=== PATIENT | female | born 2000 | race Caucasian/White ===

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

== ENCOUNTER → 2022-06-16 | Outpatient (REF) | payer OTHER, MEDICAID ==
[~2022-06-16] MED LIST changes: +BUPR150T12 PO
[2022-06-16 19:17] LABS: GC DNA AMPLIFICATION NEGATIVE (NEGATIVE)
== END ==
LOC: M LAB REF 16:33
PROVIDERS: ATTEND Physician Assistant
DX: Z11.3 Encounter for screening for infections with a predominantly sexual mode of transmission (principal)

== ENCOUNTER → 2022-07-23 | Outpatient (REF) | payer OTHER, MEDICAID | LOC: M LAB REF 12:27 | PROVIDERS: ATTEND Nurse Practitioner Family | DX: J02.9 Acute pharyngitis, unspecified (principal) ==

== ENCOUNTER → 2022-12-01 | Outpatient (REF) | payer OTHER ==
[2022-12-01 17:10] LABS: APPEARANCE, URINE CLEAR (CLEAR); BACTERIA, URINE AUTO NEGATIVE (NEGATIVE); BILIRUBIN, URINE AUTO NEGATIVE (NEGATIVE); BLOOD, URINE BLOOD NEGATIVE (NEGATIVE); COLOR, URINE YELLOW (YELLOW); GLUCOSE, URINE (UA) AUTO NEGATIVE (NEGATIVE); KETONE, URINE AUTO NEGATIVE (NEGATIVE); LEUKOCYTE ESTERASE, URINE AUTO NEGATIVE (NEGATIVE); NITRITE, URINE AUTO NEGATIVE (NEGATIVE); PROTEIN, URINE AUTO NEGATIVE (NEGATIVE); RBC, URINE AUTO 0 /HPF (0-3); SPECIFIC GRAVITY URINE AUTO 1.019 (1.002-1.035); SQUAMOUS EPITHELIAL CELL UR AU 0 /HPF (0-6); UROBILINOGEN, URINE AUTO 0.2 mg/dL (0.0-2.0); WBC, URINE AUTO 1 /HPF (0-3)
== END ==
LOC: M LAB REF 16:16
PROVIDERS: ATTEND Physician Assistant
DX: R35.0 Frequency of micturition (principal)

== ENCOUNTER → 2022-12-09 | Outpatient (CLI) | payer OTHER | LOC: M RAD 13:57 | PROVIDERS: ATTEND Physician Assistant | DX: R35.0 Frequency of micturition (principal) ==

== ENCOUNTER → 2022-12-14 | Outpatient (CLI) | payer OTHER | LOC: M CARPUL 08:43 | PROVIDERS: ATTEND Physician Assistant | DX: R06.00 Dyspnea, unspecified (principal) ==

== ENCOUNTER → 2023-03-04 | Outpatient (REF) | payer BC, OTHER ==
[~2023-03-04] MED LIST changes: +LORA-1041; -LORA-674
[2023-03-04 15:07] LABS: HEMATOCRIT 39.3 % (36.0-47.0); HEMOGLOBIN 13.1 g/dl (12.0-15.5); MEAN CORPUSCULAR HEMOGLOBIN 30.4 pg (27.0-33.0); MEAN CORPUSCULAR HGB CONC 33.3 g/dl (32.0-36.5); MEAN CORPUSCULAR VOLUME 91.2 fl (80.0-96.0); PLATELET COUNT, AUTOMATED 244 10^3/uL (150-450); RED BLOOD COUNT 4.31 10^6/uL (4.00-5.40); WHITE BLOOD COUNT 9.2 10^3/uL (4.0-10.0)
[2023-03-11 06:40] LABS: ALKALINE PHOSPHATASE 56 IU/L (44-121); ALT/SGPT 12 IU/L (0-32); AST/SGOT 17 IU/L (0-40); BILIRUBIN,TOTAL < 0.2 MG/DL (0.0-1.2); BLOOD UREA NITROGEN 9 MG/DL (8-27); CALCIUM LEVEL 9.8 MG/DL (8.7-10.3); CARBON DIOXIDE LEVEL 18 mmol/L (20-29); CHLORIDE LEVEL 103 mmol/L (96-106); CREATININE FOR GFR 0.69 MG/DL (0.57-1.00); POTASSIUM SERUM 4.7 mmol/L (3.5-5.2); SODIUM LEVEL 140 mmol/L (134-144); TRIGLYCERIDES LEVEL 94 MG/DL (0-149)
[2023-03-11 06:41] LABS: ALBUMIN 4.8 G/DL (3.9-4.9); CHOLESTEROL LEVEL 190 MG/DL (100-199); CHOLESTEROL RISK RATIO 3.454 (<5); FERRITIN 38 NG/ML (15-150); HDL CHOLESTEROL 55 MG/DL (>39); IRON (FE) 62 UG/DL (27-139); LDL CHOLESTEROL 116.2 MG/DL (<100); NON-HDL-C 135 MG/DL; THYROID STIMULATING HORMONE 0.774 uIU/ML (0.450-4.500); TOTAL 25(OH) VITAMIN D 19.8 NG/ML (30-100); TOTAL IRON BINDING CAPACITY 369 UG/DL (250-450)
[2023-03-11 06:42] LABS: HIV 1&2 SCREEN NEGATIVE (NEGATIVE)
[2023-03-11 06:44] LABS: GLUCOSE, FASTING 100 MG/DL (70-99)
== END ==
LOC: M LAB REF 13:23
PROVIDERS: ATTEND Physician Assistant
DX: Z11.59 Encounter for screening for other viral diseases (principal); Z11.4 Encounter for screening for human immunodeficiency virus [HIV]; E55.9 Vitamin D deficiency, unspecified; E66.9 Obesity, unspecified; E61.1 Iron deficiency

== ENCOUNTER → 2024-12-05 | Outpatient (CLI) | payer OTHER ==
[~2024-12-05] MED LIST changes: +FLUO-365; -FLUO20CA22
[2024-12-05 18:46] LABS: PLATELET COUNT, AUTOMATED 258 10^3/uL (150-450)
[2024-12-05 20:04] LABS: ESTIMATED AVERAGE GLUCOSE 100.0 MG/DL (60-110)
[2024-12-05 22:00] LABS: ALT/SGPT 23 U/L (7.0-40); AST/SGOT 17 U/L (<34); CALCIUM LEVEL 9.6 MG/DL (8.5-10.1); CARBON DIOXIDE LEVEL 26 MMOL/L (20-31); CHLORIDE LEVEL 101 MMOL/L (98-107); CHOLESTEROL LEVEL 192 MG/DL (<200); CHOLESTEROL RISK RATIO 3.96 (<5); CREATININE FOR GFR 0.64 MG/DL (0.55-1.30); GLOMERULAR FILTRATION RATE > 90.0 (>60); LDL CHOLESTEROL 111.4 MG/DL (<100); NON-HDL-C 143.6 MG/DL; POTASSIUM SERUM 4.4 MMOL/L (3.5-5.1); SODIUM LEVEL 141 MMOL/L (136-145); TRIGLYCERIDES LEVEL 161 MG/DL (<150)
[2024-12-05 22:03] LABS: TOTAL 25(OH) VITAMIN D 27.7 NG/ML (20.0-100.0)
== END ==
LOC: M PLALAB 15:50
PROVIDERS: ATTEND Registered Nurse
DX: F32.A Depression, unspecified (principal)